=== PATIENT | male | born 1975 | race Two or more races ===

== ENCOUNTER 2025-07-26 13:31 | Outpatient (AMB) | payer MEDICAID, SELFPAY ==
--- NOTE | 2025-07-26 13:42 | GSCOFFNT_ITS ---
[facility] - [facility] 07/26/25 13:48 Height 1.65 m Height Method Measured Weight 93.44 kg Weight Measurement Method Standing Scale BMI 34.3 BP 148/84 H Blood Pressure Source Automatic Cuff Blood Pressure Location Left Upper Arm Position Sitting Respiration 18 Pulse 79 Pulse Source Monitor Temp 97.8 F Temp Source Temporal Artery Scan Pulse Oximetry (%) 96 Oxygen Delivery Method Room Air Med/Allergies Allergies & Medications Allergies No Known Allergies Allergy (Verified 07/26/25 13:49) Medication Reconciliation metformin 1,000 mg tablet 1,000 mg PO BID 10/18/22 [History Confirmed 07/26/25] semaglutide 0.25 mg or 0.5 mg (2 mg/3 mL) subcutaneous pen injector (Ozempic) 0.25 mg subcut QWEEK 02/03/24 [History Confirmed 07/26/25] oxycodone-acetaminophen 5 mg-325 mg tablet (Percocet) 1 tab PO Q6H PRN pain #30 tabs 02/12/24 [Rx Confirmed 07/26/25] MA Intake Visit Data Collection New Patient or Established: Established Patient (seen at [facility] [place] within 3 years) Seen by Clinical Staff ONLY (RN/MA): No Reason for Visit:: REFERRAL ANAL FISSURE Pain Present Currently: Yes Pain Location: Rectum Pain scale:: 0 Pain Scale Used: Oslulivan-Millard/Numerical Microbiological Laboratory Technician Required: No PCP or OBGYN visit in last 3 months: Yes Hx Now: No Do You Feel Safe at Home: Yes Authorities Contacted: N/A Smoking Status Smoking Status: Former smoker Immunization / Flu Flu Vaccine in the Last 12 Months: No Flu Vaccine Exclusion Criteria: Refused by Patient Past Medical History Past Medical History NEUROLOGIC: Negative Neurological Disorders or Seizures CARDIAC: Negative Cardiac Disorders, Hypercholesterolemia, Congestive Heart Failure, Edema, Cellulitis or Hypertension RESPIRATORY: Negative Chronic Obstructive Pulmonary Disease (COPD), Tuberculosis or Sleep Apnea GASTROINTESTINAL: Positive Gastrointestinal Disorders and Obesity; Negative Hepatitis GENITOURINARY: Negative Genitourinary Disorders, Renal Disease or Benign Prostatic Hyperplasia ENDOCRINE: Positive Endocrine Disorders and Diabetes Mellitus Type 2; Negative Diabetes Mellitus Type 1 HEMATOLOGIC: Negative Blood Disorders OTHER HISTORY: Negative Hospitalization, Autoimmune Disease, Shingles, Falls, Blood Transfusions, Blood Transfusion Reaction, Anesthesia Reactions, Chemotherapy, Radiation Therapy, MRSA, Chicken Pox, Measles, Mumps or Cancer Family History FAMILY HISTORY: Positive Family Cancer and Family Surgery; Negative Family Psychiatric Problems, Family Respiratory Disorders, Family Cardiac Disorders, Family Gastrointestinal Problems or Family Anesthesia Reaction Surgical History SURGICAL: Negative Pacemaker Social History SMOKING STATUS: Smoking status: Former smoker ALCOHOL: Alcohol Intake: Former HOUSING: Housing: House HPI HPI Narrative 49M with DMII who presented with recurrent perianal abscess with associated fistula, s/p seton placement 11/2022, fistulotomy 05/2023, seton replacement 10/2023, and finally fistulotomy 02/12/24, last seen 08/2024 here for ongoing drainage. Pt states he has been having drainage again for the past several months, some days it is none but other days it is a lot, and sometimes associated with pain although he is not currently having pain. He denies any fever and states his BMs remain soft without any straining or diarrhea. His most recent A1c was 06/2025 and was 7.6, whereas in 06/2024 it was 11.4. Pt states he was started on ozempic in the past year ROS Review of Systems Systems Reviewed: All systems reviewed, normal except as documented Objective/Exam General General Appearance: alert, cooperative and well groomed Resp Respiratory exam: Absent respiratory distress Rectal Rectal exam: Present other (just to the right of the posterior midline there is a punctate external opening approx 1cm from anal verge, with yellow drainage, no surrounding erythema, mild tenderness) Assessment & Plan Diagnosis / Problem List (1) Perianal fistula: Status: Acute Assessment & Plan: 49M with DMII who presented with recurrent perianal abscess with associated fistula, s/p two different pairs of surgeries in 2022 and 2023, most recently fistulotomy 02/2024 presenting with several months of recurrent drainage from the right posterior perianal region. As his diabetes is better controlled I explained that hopefully this treatment will be more successful, recommending another seton placement followed by definitive treatment when the drainage noticeably decreases. Pt expressed understanding and is agreeable with this plan Office Procedures GNS Level of Care Nursing/Assessment Patient Status: Established Patient Nursing Assessment/Reassesment: Medication Reconciliation, Update PMH in EMR and Vital Signs Coordination of Care: Complex Care and Chronic Disease 1-5, Consent,records obtained, informed consent, Education Simp Pt/Fam, Results/Orders obtained and Staff clarify orders Established Patient Charge Established Patient Point Assignment: 90 Established Patient Point Charge: EP Level 3 (80-115) Patient Portal Questionaires Social History Living Situation History Housing: House Tobacco History Smoking Status: Former smoker Alcohol History Alcohol Intake: Former Domestic Abuse History Do You Feel Safe at Home: Yes Review of Systems Report any current symptoms Only answer those that you have currently: Past Medical History Past Medical History Have you ever been diagnosed with any of the following: Neurological Problems Seizures: No Cardiology Problems Hypercholesterolemia: No Congestive Heart Failure: No Edema: No Cellulitis: No Hypertension: No Respiratory Problems Chronic Obstructive Pulmonary Disease (COPD): No Tuberculosis: No Sleep Apnea: No Stomache/Intestinal Problems Hepatitis: No Obesity: Yes Genital/Urinary Problems Renal Disease: No Benign Prostatic Hyperplasia: No Endocrine Problems Diabetes Mellitus Type 1: No Diabetes Mellitus Type 2: Yes Other Problems Hospitalization: No Autoimmune Disease: No Shingles: No Falls: No Blood Transfusions: No Blood Transfusion Reaction: No Anesthesia Reactions: No Chemotherapy: No Radiation Therapy: No MRSA: No Chicken Pox: No Measles: No Mumps: No Cancer: No Surgical History Pacemaker: No
[2025-07-26 13:48] VITALS: BP 148/84; PULSE 79; RESP 18; TEMP 36.6; O2SAT 96; BMI 34.3
== END 2025-07-26 14:35 | disposition home or self-care (01) ==
LOC: HODSRG 13:31
PROVIDERS: PCP Nurse Practitioner Family; Referring Provider Nurse Practitioner Family; Supervising Provider Surgery; Visit Provider Surgery
DX: K60.30 Anal fistula, unspecified (principal); E11.9 Type 2 diabetes mellitus without complications; E66.9 Obesity, unspecified; Z68.34 Body mass index [BMI] 34.0-34.9, adult
CPT/HCPCS: 99213; G0463

== ENCOUNTER 2025-09-02 10:55 | Outpatient (AMB) | payer MEDICAID, SELFPAY ==
[2025-09-02 11:01] VITALS: BP 144/80; PULSE 77; RESP 18; TEMP 36.5; O2SAT 94; BMI 34.7
--- NOTE | 2025-09-02 11:01 | GSCOFFNT_ITS ---
[facility] - [facility] 09/02/25 11:01 Height 1.65 m Height Method Stated Weight 94.404 kg Weight Measurement Method Standing Scale BMI 34.7 BP 144/80 H Blood Pressure Source Automatic Cuff Blood Pressure Location Right Upper Arm Position Sitting Respiration 18 Pulse 77 Pulse Source Monitor Temp 97.7 F Temp Source Temporal Artery Scan Pulse Oximetry (%) 94 L Oxygen Delivery Method Room Air Med/Allergies Allergies & Medications Allergies No Known Allergies Allergy (Verified 09/02/25 11:02) Medication Reconciliation metformin 1,000 mg tablet 1,000 mg PO BID 10/18/22 [History Confirmed 09/02/25] semaglutide 0.25 mg or 0.5 mg (2 mg/3 mL) subcutaneous pen injector (Ozempic) 0.25 mg subcut QWEEK 02/03/24 [History Confirmed 09/02/25] oxycodone-acetaminophen 5 mg-325 mg tablet (Percocet) 1 tab PO Q6H PRN pain #30 tabs 02/12/24 [Rx Confirmed 09/02/25] MA Intake Visit Data Collection New Patient or Established: Established Patient (seen at [facility] within 3 years) Seen by Clinical Staff ONLY (RN/MA): No Reason for Visit:: PRE-OP Pain Present Currently: No Pain scale:: 0 Pain Scale Used: Osullivan-Millard/Numerical Environmental Sampling Technician Required: No PCP or OBGYN visit in last 3 months: Yes Hx Now: No Do You Feel Safe at Home: Yes Authorities Contacted: N/A Smoking Status Smoking Status: Former smoker Immunization / Flu Flu Vaccine in the Last 12 Months: No Flu Vaccine Exclusion Criteria: No Exclusion Criteria Past Medical History Past Medical History NEUROLOGIC: Negative Neurological Disorders or Seizures CARDIAC: Negative Cardiac Disorders, Hypercholesterolemia, Congestive Heart Failure, Edema, Cellulitis or Hypertension RESPIRATORY: Negative Chronic Obstructive Pulmonary Disease (COPD), Tuberculosis or Sleep Apnea GASTROINTESTINAL: Positive Gastrointestinal Disorders and Obesity; Negative Hepatitis GENITOURINARY: Negative Genitourinary Disorders, Renal Disease or Benign Prostatic Hyperplasia MUSCULOSKELETAL: Negative Musculoskeletal Disorders ENDOCRINE: Positive Endocrine Disorders and Diabetes Mellitus Type 2; Negative Diabetes Mellitus Type 1 HEMATOLOGIC: Negative Blood Disorders OTHER HISTORY: Negative Hospitalization, Autoimmune Disease, Shingles, Falls, Blood Transfusions, Blood Transfusion Reaction, Anesthesia Reactions, Chemotherapy, Radiation Therapy, MRSA, Chicken Pox, Measles, Mumps or Cancer Family History FAMILY HISTORY: Positive Family Cancer and Family Surgery; Negative Family Psychiatric Problems, Family Respiratory Disorders, Family Cardiac Disorders, Family Gastrointestinal Problems or Family Anesthesia Reaction Surgical History SURGICAL: Negative Pacemaker Social History SMOKING STATUS: Smoking status: Former smoker SUBSTANCE USE: Substance use type: does not use ALCOHOL: Alcohol Intake: Former HOUSING: Housing: House Travel Risk Travel Hx Recent Travel: No HPI HPI Narrative 49M with DMII who presented with recurrent perianal abscess with associated fistula, s/p seton placement 11/2022, fistulotomy 05/2023, seton replacement 10/2023, and finally fistulotomy 02/12/24, who recently followed up because of a recurrence of perianal drainage and was planned for another seton placement 09/15. Today pt reports he is doing very well and has not had perianal drainage for the last few weeks. He is having regular BMs with no complaints, admits that he does not check his blood sugars at home but recently had another A1c checked just has not gotten the result yet ROS Review of Systems Systems Reviewed: All systems reviewed, normal except as documented Objective/Exam General General Appearance: alert, cooperative and well groomed Resp Respiratory exam: Absent respiratory distress Rectal Rectal exam: Present other (there is a small ulcer at the anterior anus which is mildly tender, but no drainage and no external opening is visualized) Assessment & Plan Diagnosis / Problem List (1) Perianal fistula: Status: Acute Assessment & Plan: 49M with DMII who presented with recurrent perianal abscess with associated fistula, s/p seton placement 11/2022, fistulotomy 05/2023, seton replacement 10/2023, and finally fistulotomy 02/12/24, who recently followed up because of a recurrence of perianal drainage and was planned for another seton placement 09/15, however he is now doing very well with no ongoing drainage and no external opening visualized on exam. I explained that we can cancel the surgery for now and will follow up in 6 weeks to reassess Office Procedures GNS Level of Care Nursing/Assessment Patient Status: Established Patient Nursing Assessment/Reassesment: Medication Reconciliation, Update PMH in EMR and Vital Signs Coordination of Care: Complex Care and Chronic Disease 1-5, Education Complex Pt/Fam, Consent,records obtained, informed consent, 1 Ins Authorization, Results/Orders obtained and Staff clarify orders Special Needs: Language special needs Established Patient Charge Established Patient Point Assignment: 110 Established Patient Point Charge: Level 3 (80-115) Patient Portal Questionaires Social History Living Situation History Housing: House Tobacco History Smoking Status: Former smoker Alcohol History Alcohol Intake: Former Domestic Abuse History Do You Feel Safe at Home: Yes Review of Systems Report any current symptoms Only answer those that you have currently: Past Medical History Past Medical History Have you ever been diagnosed with any of the following: Neurological Problems Seizures: No Cardiology Problems Hypercholesterolemia: No Congestive Heart Failure: No Edema: No Cellulitis: No Hypertension: No Respiratory Problems Chronic Obstructive Pulmonary Disease (COPD): No Tuberculosis: No Sleep Apnea: No Stomache/Intestinal Problems Hepatitis: No Obesity: Yes Genital/Urinary Problems Renal Disease: No Benign Prostatic Hyperplasia: No Endocrine Problems Diabetes Mellitus Type 1: No Diabetes Mellitus Type 2: Yes Other Problems Hospitalization: No Autoimmune Disease: No Shingles: No Falls: No Blood Transfusions: No Blood Transfusion Reaction: No Anesthesia Reactions: No Chemotherapy: No Radiation Therapy: No MRSA: No Chicken Pox: No Measles: No Mumps: No Cancer: No Surgical History Pacemaker: No
== END 2025-09-02 11:18 | disposition home or self-care (01) ==
PROVIDERS: PCP Nurse Practitioner Family; Referring Provider Nurse Practitioner Family; Supervising Provider Surgery; Visit Provider Surgery
DX: K61.0 Anal abscess (principal); E11.9 Type 2 diabetes mellitus without complications; Z79.84 Long term (current) use of oral hypoglycemic drugs; E66.9 Obesity, unspecified; Z68.34 Body mass index [BMI] 34.0-34.9, adult
CPT/HCPCS: 99213; G0463

== ENCOUNTER 2025-09-27 12:55 | Outpatient (AMB) | payer MEDICAID, SELFPAY ==
[2025-09-27 13:25] VITALS: BP 153/81; PULSE 77; RESP 18; TEMP 36.4; O2SAT 96; BMI 34.7
--- NOTE | 2025-09-27 13:25 | PD.GSCLVISIT ---
Vital Signs - [facility] 09/27/25 13:25 Height 1.65 m Height Method Measured Weight 94.432 kg Weight Measurement Method Standing Scale BMI 34.7 BP 153/81 H Blood Pressure Source Automatic Cuff Blood Pressure Location Left Upper Arm Position Sitting Respiration 18 Pulse 77 Pulse Source Monitor Temp 97.5 F Temp Source Temporal Artery Scan Pulse Oximetry (%) 96 Oxygen Delivery Method Room Air Med/Allergies Allergies & Medications Allergies No Known Allergies Allergy (Verified 09/27/25 13:26) Medication Reconciliation metformin 1,000 mg tablet 1,000 mg PO BID 10/18/22 [History Confirmed 09/27/25] semaglutide 0.25 mg or 0.5 mg (2 mg/3 mL) subcutaneous pen injector (Ozempic) 0.25 mg subcut QWEEK 02/03/24 [History Confirmed 09/27/25] oxycodone-acetaminophen 5 mg-325 mg tablet (Percocet) 1 tab PO Q6H PRN pain #30 tabs 02/12/24 [Rx Confirmed 09/27/25] MA Intake Visit Data Collection New Patient or Established: Established Patient (seen at [facility] within 3 years) Seen by Clinical Staff ONLY (RN/MA): No Pain Present Currently: No Pain Scale Used: Osullivan-Millard/Numerical Health Promotion Educator Required: No PCP or OBGYN visit in last 3 months: Yes Hx Now: No Do You Feel Safe at Home: Yes Authorities Contacted: N/A Smoking Status Smoking Status: Former smoker Immunization / Flu Flu Vaccine in the Last 12 Months: Yes Flu Vaccine Exclusion Criteria: Already Received Past Medical History Past Medical History NEUROLOGIC: Negative Neurological Disorders or Seizures CARDIAC: Negative Cardiac Disorders, Hypercholesterolemia, Congestive Heart Failure, Edema, Cellulitis or Hypertension RESPIRATORY: Negative Chronic Obstructive Pulmonary Disease (COPD), Tuberculosis or Sleep Apnea GASTROINTESTINAL: Positive Gastrointestinal Disorders and Obesity; Negative Hepatitis GENITOURINARY: Negative Genitourinary Disorders, Renal Disease or Benign Prostatic Hyperplasia ENDOCRINE: Positive Endocrine Disorders and Diabetes Mellitus Type 2; Negative Diabetes Mellitus Type 1 HEMATOLOGIC: Negative Blood Disorders OTHER HISTORY: Negative Hospitalization, Autoimmune Disease, Shingles, Falls, Blood Transfusions, Blood Transfusion Reaction, Anesthesia Reactions, Chemotherapy, Radiation Therapy, MRSA, Chicken Pox, Measles, Mumps or Cancer Family History FAMILY HISTORY: Positive Family Cancer and Family Surgery; Negative Family Psychiatric Problems, Family Respiratory Disorders, Family Cardiac Disorders, Family Gastrointestinal Problems or Family Anesthesia Reaction Surgical History SURGICAL: Negative Pacemaker Social History SMOKING STATUS: Smoking status: Former smoker ALCOHOL: Alcohol Intake: Former HOUSING: Housing: House [facility] Narrative HISTORY OF PRESENT ILLNESS I, Blanca Mirza, have obtained verbal consent from the patient, to be recorded during this encounter which may include, but not limited to, medical history, examination, treatment plans, and relevant health information.? Patient was informed that recording will be read and reviewed by myself before inclusion in the medical chart. 49M with DMII who presented with recurrent perianal abscess with associated fistula, s/p seton placement 11/2022, fistulotomy 05/2023, seton replacement 10/2023, and finally fistulotomy 02/12/24, who recently followed up because of a recurrence of perianal drainage which has waxed and waned. Pt was scheduled for surgery on 09/15 however it was canceled as he was not having any drainage at the time. Today he is here for another scheduled follow-up. He reports minimal drainage from the fistula, which he does not find significantly bothersome. The drainage is not a daily occurrence, and he is currently experiencing only a small amount. He is not experiencing any pain associated with the fistula. His bowel movements are regular and without difficulty. He expresses a desire to monitor the condition of the fistula, as he is uncertain about the need for further surgical intervention at this time. ROS Review of Systems Systems Reviewed: All systems reviewed, normal except as documented Objective/Exam General General Appearance: alert, cooperative and well groomed Resp Respiratory exam: Absent respiratory distress Assessment & Plan Diagnosis / Problem List (1) Perianal fistula: Status: Acute Assessment & Plan: 49M with recurrent perianal fistula s/p two rounds of surgical treatment, now with minimal and intermittent symptoms. A follow-up appointment is scheduled for 2 months. The patient has the option to call and schedule an earlier appointment if symptoms worsen or if he feels unwell. Risks, benefits, and alternatives of monitoring versus surgical intervention were discussed. Monitoring is preferred due to the minimal drainage and absence of significant pain. All questions were answered and pt is agreeable with this plan Office Procedures GNS Level of Care Nursing/Assessment Patient Status: Established Patient Nursing Assessment/Reassesment: Medication Reconciliation, Update PMH in EMR and Vital Signs Coordination of Care: Complex Care and Chronic Disease 1-5, Education Complex Pt/Fam, Consent,records obtained, informed consent, Results/Orders obtained and Staff clarify orders Established Patient Charge Established Patient Point Assignment: 95 Established Patient Point Charge: EP Level 3 (80-115) Patient Portal Questionaires Social History Living Situation History Housing: House Tobacco History Smoking Status: Former smoker Alcohol History Alcohol Intake: Former Domestic Abuse History Do You Feel Safe at Home: Yes Review of Systems Report any current symptoms Only answer those that you have currently: Past Medical History Past Medical History Have you ever been diagnosed with any of the following: Neurological Problems Seizures: No Cardiology Problems Hypercholesterolemia: No Congestive Heart Failure: No Edema: No Cellulitis: No Hypertension: No Respiratory Problems Chronic Obstructive Pulmonary Disease (COPD): No Tuberculosis: No Sleep Apnea: No Stomache/Intestinal Problems Hepatitis: No Obesity: Yes Genital/Urinary Problems Renal Disease: No Benign Prostatic Hyperplasia: No Endocrine Problems Diabetes Mellitus Type 1: No Diabetes Mellitus Type 2: Yes Other Problems Hospitalization: No Autoimmune Disease: No Shingles: No Falls: No Blood Transfusions: No Blood Transfusion Reaction: No Anesthesia Reactions: No Chemotherapy: No Radiation Therapy: No MRSA: No Chicken Pox: No Measles: No Mumps: No Cancer: No Surgical History Pacemaker: No
== END 2025-09-27 13:33 | disposition home or self-care (01) ==
LOC: HODSRG 12:55
PROVIDERS: PCP Nurse Practitioner Family; Referring Provider Nurse Practitioner Family; Supervising Provider Surgery; Visit Provider Surgery
DX: K60.30 Anal fistula, unspecified (principal); E11.9 Type 2 diabetes mellitus without complications; Z79.84 Long term (current) use of oral hypoglycemic drugs; E66.9 Obesity, unspecified; Z68.34 Body mass index [BMI] 34.0-34.9, adult
CPT/HCPCS: 99213; G0463